=== PATIENT | male | born 1950 | race Two or more races ===

== ENCOUNTER 2024-08-06 04:25 | Inpatient (IN) | payer OTHER ==
[~2024-08-06] VITALS: Ht 175.3 cm; Wt 104.3 kg
[2024-08-06] MEDS ORDERED: CHILDREN'S ASPI81 MG PO (04:51)
[2024-08-06] MEDS ORDERED: NEURONTIN600 M1 PO (04:52)
[2024-08-06] MEDS ORDERED: FINASTERIDE5 MG PO (04:52)
[2024-08-06] MEDS ORDERED: CRESTOR40 MG PO (04:52)
[2024-08-06] MEDS ORDERED: GEMFIBROZIL600 MG PO (04:52)
[2024-08-06] MEDS ORDERED: ENTRESTO 24 MG1 EACH (04:53)
[2024-08-06] MEDS ORDERED: GLYXAMBI 10 MG1 EACH PO (04:53)
[2024-08-06] MEDS ORDERED: KAPSPARGO SPRIN25 MG (04:53)
[2024-08-06] MEDS ORDERED: TAMS0.4C PO (04:53)
[2024-08-06] MEDS ORDERED: 0.9 % SODIUM CHLORIDE 1,000 ML IV STA (04:53)
[2024-08-06] MEDS ORDERED: XARELTO20 MG PO (04:54)
--- NOTE | 2024-08-06 04:55 | NUR ---
SE RECIBE PACIENTE ALERTA Y ORIENTADO EN COMPANIA DE FAMILIAR QUIEN REFIERE TRAER A PACIENTE A CAUSA DE QUE MAXWELL ESTADO PRESENTANDO NIVELES DE AZUCAR ALTOS, AL MOMENTO SE REALIZA DXT EN PACIENTE Y EL MISMO PRESENTA 230 MG/DL. SE OBSERVA A PACIENTE CON DIFICULTAD RESPIRATORIA Y SATURANDO 80%. SE UBICA PACIENTE EN MONITOR CARDIACO Y SE CONECTA A OXIMETRIA DE PULSO CONTINUA.
[2024-08-06] MEDS ORDERED: IPRATROPIUM/ALBUTEROL SULFATE 3 ML AMPUL.NEB IH SCH (05:00)
--- NOTE | 2024-08-06 05:45 | NUR ---
SE EDUCA A PACIENTE Y FAMILIAR SOBRE TRATAMIENTO MEDICO, LOS MISMOS REFIEREN ENTENDER, SE REALIZA SHERMAN DE MUESTRAS BAJO MEDIDAS ASEPTICAS Y SE INICIA MEDICAMENTO ROGER ORDEN MEDICA. SE COLOCA CANULA NASAL A 5LT/MIN. Y SE MANTIENE BAJO OBSERVACION POR CONTINUACION DE TRATAMIENTO.
[2024-08-06 06:40] LABS: BASO % 0.1 % (0.1-1.2); HEMATOCRIT 42.5 % (40.1-51.0); HEMOGLOBIN 13.2 g/dL (13.7-17.5); LYMPH # 0.81 (1.18-3.74); LYMPH % 4.9 % (19.3-53.1); MEAN CORPUSCULAR HEMOGLOBIN 28.1 pg (25.6-32.2); MONO # 1.07 (0.24-0.82); MONO % 6.5 % (4.7-12.5); NEUT # 14.47 (1.56-6.13); NEUT % 87.8 % (34.0-71.1); PLATELET COUNT 205 K/uL (163-369); RED CELL DISTRIBUTION WIDTH 14.1 % (11.6-14.4)
[2024-08-06 06:45] LABS: BASE EXCESS -4.4 mmol/l; BICARBONATE 26.2 mmol/l (23-25); SaO2 80.4 %; Tco2 28.5 mmol/l
[2024-08-06 06:46] LABS: ABG PO2 58.9 mmHg (80-100); ABG pCO2 75.3 mmHg (35-45); allen test SATISFACTORY; mode ROOM AIR; o2 21 %; puncture site RADIAL LEFT
[2024-08-06 06:47] LABS: INR 1.11
[2024-08-06 06:50] LABS: D DIMER 0.4 MG/L; PARTIAL THROMBOPLASTIN TIME 33.2 SECONDS (22.0-34.0)
[2024-08-06 07:00] LABS: ALBUMIN 3.2 gm/dL (3.4-5.0); ALKALINE PHOSPHATASE 120 U/L (50-136); AMYLASE 66 U/L (25-115); ANION GAP 13 (10.0-20.0); AST/SGOT 20 U/L (15-37); BILIRUBIN TOTAL 0.59 mg/dL (0.3-1.2); BLOOD UREA NITROGEN 64 mg/dL (7-18); BUN CREA RATIO 22 (7.0-25.0); CALCIUM 8.3 mg/dL (8.5-10.1); CARBON DIOXIDE 24 mEq/L (21-32); CHLORIDE 104 mmol/L (98-107); CREATININE SERUM 2.92 mg/dL (0.70-1.30); GFR 21.21; LIPASE 37 U/L (13-75); POTASSIUM 5.82 mEq/L (3.5-5.1); SODIUM 135 mmol/L (136-145); TOTAL PROTEIN 8.2 gm/dL (6.4-8.2)
[2024-08-06 07:05] LABS: OSMOLALITY SERUM 295 MOSM/KG (275-295)
[2024-08-06 07:06] LABS: ALT/SGPT < 6 U/L (12-78); GLUCOSE FASTING 223 mg/dL (65-100)
[2024-08-06 07:16] LABS: INFLUENZA A AG NEGATIVE (NEGATIVE)
[2024-08-06 07:24] LABS: COVID-19 AG NEGATIVE (NEGATIVE)
--- NOTE | 2024-08-06 08:20 | NUR ---
SE RECIBE PTE ALERTA Y ORIENTADO, EN AREA DE CRITICO EN CAMA #3 CON BARANDAS ELEVADAS. PTE CONECTADO A MONITOR CARDIACO, OXIMETRIA DE PULSO Y BI-PAP CON PARAMETROS DE IPAP=18, EPAP=8, VZN2=830 Y RR=18. SE MIDEN S/V Y SE REALIZA DEXTRO. SE OBSERVA POR CAMBIOS. PERSONLA DE TERAPIA RESPIRATORIA REALIZA ABG Y [place] PARAMETROS DE BI-PAP A EPAP=8 Y FIO2=45%. OBSERVA POR CAMBIOS.
[2024-08-06] MEDS ORDERED: IPRATROPIUM BROMIDE 0.5 MG/2.5 ML AMPUL.NEB IH ONE (08:52)
[2024-08-06] MEDS ORDERED: LEVALBUTEROL HCL 1.25 MG/3 ML SOLUTION IH ONE (08:52)
[2024-08-06 09:12] LABS: ABG PH 7.137 (7.35-7.45); ABG PO2 495.6 mmHg (80-100); ABG pCO2 75.6 mmHg (35-45)
[2024-08-06 09:13] LABS: BASE EXCESS -5.9 mmol/l; SaO2 99.9 %; Tco2 27.3 mmol/l
[2024-08-06 09:14] LABS: allen test NO SATISFACTORY; mode BPAP; o2 100 %; puncture site RADIAL LEFT
[2024-08-06] MEDS ORDERED: SODIUM BICARBONATE 1 MEQ/ML DISP.SYRIN 50ML IV ONE (09:30)
[2024-08-06 10:19] LABS: ABG PH 7.087 (7.35-7.45); ABG PO2 115.7 mmHg (80-100); BASE EXCESS -6.8 mmol/l; BICARBONATE 25.3 mmol/l (23-25); SaO2 95.7 %
[2024-08-06 10:20] LABS: Tco2 27.9 mmol/l
[2024-08-06 10:21] LABS: allen test NO SATISFACTORY; mode BPAP; o2 45 %; puncture site RADIAL RIGHT
[2024-08-06] MEDS ORDERED: SODIUM BICARBONATE 50MEQ/50ML VIAL IV ONE ×2 (10:39→14:29)
[2024-08-06] MEDS ORDERED: IPRATROPIUM/ALBUTEROL SULFATE 3 ML AMPUL.NEB IH ONE (12:16)
[2024-08-06 13:19] LABS: ABG PO2 105.8 mmHg (80-100); BASE EXCESS -6.3 mmol/l; BICARBONATE 28.3 mmol/l (23-25); SaO2 93.1 %; Tco2 31.8 mmol/l; allen test SATISFACTORY; mode BPAP; o2 45 %; puncture site RADIAL RIGHT
[2024-08-06 13:20] LABS: ABG PH 7.009 (7.35-7.45)
[2024-08-06 13:21] LABS: ABG pCO2 114.9 mmHg (35-45)
[2024-08-06] MEDS ORDERED: SODIUM BICARBONATE 1 MEQ/ML DISP.SYRIN 50ML IV STA (14:47)
--- NOTE | 2024-08-06 14:49 | NUR ---
PTE SPO EN 70% CON BI-PAP EN RANGOS DE IPAP:18, FIO2:50%, EPAD: 12, BR:24. DR. MONTOYA EVALUA PTE Y ORDENA MEDICAMENTOS. SE ADMINISTRAN MEDICAMENTOS ROGER ORDEN MEDICA BAJO MEDIDAS ASEPTICAS. PTE CON DNI.
--- NOTE | 2024-08-06 15:49 | NUR ---
SE RECIBE PACIENTE EN ESTADO COMATOSO EL MISMO SIN RESPUESTA A ESTIMULOS VERBALES O DE DOLOR. EL MISMO CONECTADO A MONITOR CARDIACO Y OXIMETRIA DE PULSO. CANALIOZDO EN MAQNO Y BRAZO DERECHO # 18 PATENTE Y RONI DE DOLOR BAJANDO CON UN 0.9NSS @ 60 ML/HR. PAULINO DRENANDO ORINA AMARILLA SIN HEMATURIA. EL MISMO CON VENTILADOR BIPAP PARAMETROS IPAP:18 , EPAP:12 RR:24 Y FIO2:50%. CONSULTADO CON DR. VELIZ. EL MISMO CON ORDEN DIRECTRIZ ANTICIPADA DE DNI
[2024-08-06] MEDS ORDERED: AZITHROMYCIN 500 MG TABLET PO ONE (16:00)
[2024-08-06] MEDS ORDERED: VANCOMYCIN HCL 500 MG VIAL IU SCH (17:56)
[2024-08-06] MEDS ORDERED: FAMOTIDINE/PF 20 MG in 0.9 % SODIUM CHLORIDE 8 ML IV PUSH SCH (18:00)
[2024-08-06] MEDS ORDERED: ACETAMINOPHEN 500 MG GEL..CAP PO PRN (18:00)
[2024-08-06] MEDS ORDERED: ENOXAPARIN SODIUM 100 MG/ML SYRINGE SUBCUTANEO SCH (18:01)
[2024-08-06] MEDS ORDERED: IPRATROPIUM BROMIDE 0.5 MG/2.5 ML AMPUL.NEB IH SCH (18:09)
[2024-08-06] MEDS ORDERED: LEVALBUTEROL HCL 1.25 MG/3 ML SOLUTION IH SCH (18:09)
[2024-08-06] MEDS ORDERED: DEXTROSE 50 % IN WATER 0.5 G/ML DISP.SYRIN IV PRN (18:15)
[2024-08-06] MEDS ORDERED: ONDANSETRON HCL 4 MG in 0.9 % SODIUM CHLORIDE 50 ML IV PRN (18:15)
[2024-08-06] MEDS ORDERED: NITROGLYCERIN IN 5 % DEXTROSE 250 ML IV SCH (18:15)
[2024-08-06] MEDS ORDERED: INSULIN LISPRO 1,000 UNIT/10 ML UNITS SUBCUTANEO PRN (18:15)
[2024-08-06] MEDS ORDERED: MEROPENEM 500 MG/VIAL VIAL IV SCH (18:22)
[2024-08-06] MEDS ORDERED: FAMOTIDINE/PF 20 MG/2 ML VIAL ONE (19:44)
[2024-08-06 20:43] LABS: URINE APPEARANCE Cloudy; URINE BACTERIA 133.4 uL (0.0-1933); URINE BILIRRUBIN Negative (NEGATIVE); URINE BLOOD Large; URINE CAST 10.01 uL (0.0-1.40); URINE COLOR Dark Yellow; URINE EPITHELIAL CELLS 35.6 uL (0.0-38.8); URINE KETONE Trace (NEGATIVE); URINE LEUKOCYTE Negative; URINE NITRATE Negative; URINE RBC 14.1 uL (0.0-20.8); URINE WBC 7.2 uL (0.0-23.2)
[2024-08-06 20:45] VITALS: BP 90/52; O2SAT 99
[2024-08-06 20:56] LABS: URINE GLUCOSE >=1000 MG/DL (NEGATIVE); URINE PROTEIN 300 (NEGATIVE)
[2024-08-06] MEDS ORDERED: ENTRESTO PO SCH (21:00)
[2024-08-06] MEDS ORDERED: FUROsemide 20 MG/2 ML VIAL IV SCH (21:00)
[2024-08-06 21:10] LABS: MAGNESIUM 3.7 mg/dL (1.8-2.4)
[2024-08-06 21:15] LABS: C-REACTIVE PROTEIN 15.4 MG/DL (0.00-0.29); PHOSPHOROUS 10.8 mg/dL (2.5-4.9)
[2024-08-06] MEDS ORDERED: 0.9 % SODIUM CHLORIDE 1,000 ML IV ONE (21:30)
[2024-08-06] MEDS ORDERED: 0.9 % SODIUM CHLORIDE 1,000 ML IV SCH (21:30)
[2024-08-06 21:43] VITALS: BP 85/41; O2SAT 99
[2024-08-06] MEDS ORDERED: NOREPINEPHRINE BITARTRATE 8 MG in DEXTROSE 5 % IN WATER 250 ML IV SCH (22:15)
[2024-08-06] MEDS ORDERED: NOREPINEPHRINE BITARTRATE 1 MG/ML AMPUL IV ONE (22:20)
[2024-08-07 00:08] LABS: ABG PH 6.764 (7.35-7.45)
[2024-08-07 00:09] LABS: ABG PO2 145.3 mmHg (80-100); allen test SATISFACTORY; mode BPAP
[2024-08-07 00:10] LABS: o2 100 %; puncture site RADIAL RIGHT
[2024-08-07] MEDS ORDERED: ROSUVASTATIN CALCIUM 20 MG TABLET PO SCH (09:00)
== END 2024-08-07 00:30 | disposition expired | DRG 640 ==
LOC: ER 04:25 → ICU-2 23:49
PROVIDERS: Emergency Medicine; General Practice; ADMIT Internal Medicine; ATTEND Internal Medicine
PROC: 3E0F7GC Introduction of Other Therapeutic Substance into Respiratory Tract, Via Natural or Artificial Opening (ICD-10-PCS; principal; 2024-08-06)
PROC: BB24ZZZ Computerized Tomography (CT Scan) of Bilateral Lungs (ICD-10-PCS; 2024-08-06)
PROC: 4A033R1 Measurement of Arterial Saturation, Peripheral, Percutaneous Approach (ICD-10-PCS; 2024-08-06)
PROC: 5A09357 Assistance with Respiratory Ventilation, Less than 24 Consecutive Hours, Continuous Positive Airway Pressure (ICD-10-PCS; 2024-08-06)
DX: E87.29 Other acidosis (principal); A41.9 Sepsis, unspecified organism; J96.00 Acute respiratory failure, unspecified whether with hypoxia or hypercapnia; J11.00 Influenza due to unidentified influenza virus with unspecified type of pneumonia; R65.21 Severe sepsis with septic shock; N17.9 Acute kidney failure, unspecified; I46.9 Cardiac arrest, cause unspecified